=== PATIENT | male | born 1975 | race Caucasian/White ===

== ENCOUNTER 2018-07-31 08:43 | Emergency (ER) | END 2018-07-31 11:37 | disposition home or self-care (01) ==

== ENCOUNTER → 2018-08-05 | Emergency (ER) | END | disposition home or self-care (01) ==

== ENCOUNTER 2018-08-14 13:31 | Emergency (ER) | payer SELFPAY ==
[~2018-08-14] VITALS: Ht 175.3 cm; Wt 87.9 kg
[~2018-08-14 13:31] MED LIST: CEPH-443 PO; HYDR-4011 PO
[2018-08-14 13:45] VITALS: BP 128/74; PULSE 73; RESP 18; Ht 175.3 cm; Wt 87.9 kg
== END 2018-08-14 17:47 | disposition left against medical advice (07) ==
LOC: FTE 13:31
DX: Z53.21 Procedure and treatment not carried out due to patient leaving prior to being seen by health care provider (principal)